=== PATIENT | female | born 2000 | race Caucasian/White ===

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

== ENCOUNTER 2023-09-04 23:00 | Emergency (ER) | payer MEDICAID ==
[~2023-09-04] VITALS: Ht 167.6 cm; Wt 63.6 kg
[~2023-09-04 23:00] MED LIST changes: +AMOXICILLIN 50500 MG PO; +FLAGYL500 MG PO; +ZOFRAN ODT4 MG PO
[2023-09-04 23:08] VITALS: TEMP 98
[2023-09-04 23:31] VITALS: BP 121/75; PULSE 95
== END 2023-09-04 23:31 | disposition home or self-care (01) ==
LOC: COL.ER 23:00
DX: Z02.83 Encounter for blood-alcohol and blood-drug test (principal); F17.210 Nicotine dependence, cigarettes, uncomplicated